=== PATIENT | female | born 1965 | race Caucasian/White ===

== ENCOUNTER 2022-11-04 13:13 | Day surgery (SDC) | payer OTHER ==
[2022-11-04] MEDS ORDERED: Depo-Medrol 40 MG/ML IM ONE (13:14)
[2022-11-04] MEDS ORDERED: BUPIVACAINE 0.5% VIAL IJ ONE (13:14)
[2022-11-04] MEDS ORDERED: Pepcid 20 MG VIAL IV ONE (14:33)
[2022-11-04] MEDS ORDERED: Reglan 10 MG/2 ML ONE (14:33)
[2022-11-04] MEDS ORDERED: DIPRIVAN 200 MG/20 ML IV ONE (15:27)
[2022-11-04] MEDS ORDERED: Lactated Ringers 1,000 ML IV ONE (16:34)
--- NOTE | 2022-11-04 16:58 | XRAY ---
Indication: Left SI joint injection. Intraoperative fluoroscopy provided for 12 seconds. 2 digital spot images submitted for interpretation demonstrates posterior needle tip projecting over the left SI joint. Correlate with intraoperative findings/report. Incidental partially visualized left hip arthroplasty.
--- NOTE | 2022-11-04 20:24 | XRAY ---
12 seconds of fluoroscopy was used in surgery for a left SI joint injection.
== END 2022-11-04 16:00 | disposition home or self-care (01) ==
LOC: SDC-PAIN 13:13
PROVIDERS: ATTEND Psychiatry & Neurology Pain Medicine
DX: M46.1 Sacroiliitis, not elsewhere classified (principal); E11.9 Type 2 diabetes mellitus without complications; Z79.899 Other long term (current) drug therapy
CPT/HCPCS: 27096; 72170; 77002; 82947; J1030; J2704; G0260

== ENCOUNTER 2025-10-03 15:22 | Day surgery (SDC) | payer OTHER ==
[2025-10-03] MEDS ORDERED: GELSYN-3 IU ONE (15:23)
[2025-10-03] MEDS ORDERED: LIDOCAINE HCL 1% 50 MG/5 ML VL IJ ONE (15:23)
--- NOTE | 2025-10-04 08:45 | XRAY ---
Indication: Left knee injection. Intraoperative fluoroscopy provided for 7 seconds. Single digital spot image submitted for interpretation demonstrates needle tip projecting over left femur intercondylar notch. Small amount of contrast injected for needle tip placement. Correlate with intraoperative findings/report.
--- NOTE | 2025-10-04 09:35 | XRAY ---
7 seconds of fluoroscopy was used in surgery for a left intra-articular knee injection.
== END 2025-10-03 19:10 | disposition home or self-care (01) ==
LOC: SDC-PAIN 15:22
PROVIDERS: ATTEND Psychiatry & Neurology Pain Medicine
DX: M17.12 Unilateral primary osteoarthritis, left knee (principal); E11.9 Type 2 diabetes mellitus without complications

== ENCOUNTER 2025-10-10 15:50 | Day surgery (SDC) | payer OTHER ==
[2025-10-10] MEDS ORDERED: LIDOCAINE HCL 1% 50 MG/5 ML VL IJ ONE (15:51)
--- NOTE | 2025-10-10 19:54 | XRAY ---
Indication: Left knee injection. Intraoperative fluoroscopy provided for 8 seconds. Single digital spot image submitted for interpretation demonstrates needle tip projecting over left femur intercondylar notch. Small amount of contrast injected for needle tip placement. Correlate with intraoperative findings/report.
--- NOTE | 2025-10-11 09:26 | XRAY ---
8 seconds of fluoroscopy was used in surgery for a left intra-articular knee injection.
== END 2025-10-10 18:40 | disposition home or self-care (01) ==
LOC: SDC-PAIN 15:50
PROVIDERS: ATTEND Psychiatry & Neurology Pain Medicine
DX: M17.12 Unilateral primary osteoarthritis, left knee (principal); E11.9 Type 2 diabetes mellitus without complications

== ENCOUNTER 2025-10-17 16:39 | Day surgery (SDC) | payer OTHER ==
[2025-10-17] MEDS ORDERED: LIDOCAINE HCL 1% 50 MG/5 ML VL IJ ONE (16:40)
[2025-10-17] MEDS ORDERED: GELSYN-3 IU ONE (16:40)
--- NOTE | 2025-10-17 18:59 | XRAY ---
Indication: Left knee injection. Intraoperative fluoroscopy provided for 6 seconds. Single digital spot image submitted for interpretation demonstrates needle tip projecting over left femur intercondylar notch. Small amount of contrast injected for needle tip placement. Correlate with intraoperative findings/report.
--- NOTE | 2025-10-18 12:56 | XRAY ---
6 seconds of fluoroscopy was used in surgery for a left intra-articular knee injection.
== END 2025-10-17 18:40 | disposition home or self-care (01) ==
LOC: SDC-PAIN 16:39
PROVIDERS: ATTEND Psychiatry & Neurology Pain Medicine
DX: M17.12 Unilateral primary osteoarthritis, left knee (principal); E11.9 Type 2 diabetes mellitus without complications